=== PATIENT | female | born 1985 | race Two or more races ===

== ENCOUNTER 2021-07-30 09:02 | Outpatient (CLI) | payer OTHER | END 2021-07-30 10:00 | disposition home or self-care (01) | LOC: PRENATAL 09:02 | PROVIDERS: ATTEND Obstetrics & Gynecology Maternal & Fetal Medicine | DX: O35.0XX1 Maternal care for (suspected) central nervous system malformation in fetus, fetus 1 (principal); O35.3XX1 Maternal care for (suspected) damage to fetus from viral disease in mother, fetus 1; O98.512 Other viral diseases complicating pregnancy, second trimester; Z36.89 Encounter for other specified antenatal screening; Z3A.20 20 weeks gestation of pregnancy ==

== ENCOUNTER 2021-09-16 21:09 | Emergency (ER) | payer OTHER ==
[~2021-09-16] VITALS: Ht 160 cm; Wt 73.5 kg
[2021-09-16] MEDS ORDERED: PRENATABS RX T1 EACH (21:24)
[2021-09-17] MEDS ORDERED: PEPCID40 MG PO (02:56)
[2021-09-17] MEDS ORDERED: ZOFRAN4 MG PO (02:56)
== END 2021-09-17 03:15 ==
LOC: ER 21:09
DX: O21.0 Mild hyperemesis gravidarum (principal); O99.612 Diseases of the digestive system complicating pregnancy, second trimester; K52.89 Other specified noninfective gastroenteritis and colitis; Z3A.27 27 weeks gestation of pregnancy; Z03.818 Encounter for observation for suspected exposure to other biological agents ruled out

== ENCOUNTER 2021-12-09 14:30 | Inpatient (IN) | payer OTHER ==
[~2021-12-09] VITALS: Ht 160 cm; Wt 79.4 kg
[~2021-12-09 14:30] MED LIST: PEPCID40 MG PO; PRENATABS RX T1 EACH; ZOFRAN4 MG PO
== END 2021-12-20 12:31 | disposition home or self-care (01) | DRG 788 ==
LOC: OB/GYN 12-16 14:30 → LDR 12-17 06:01 → OB/GYN 12-17 06:01
PROVIDERS: ADMIT Obstetrics & Gynecology; ATTEND Obstetrics & Gynecology
PROC: 4A1HXCZ Monitoring of Products of Conception, Cardiac Rate, External Approach (ICD-10-PCS; 2021-12-17)
PROC: 10D00Z1 Extraction of Products of Conception, Low, Open Approach (ICD-10-PCS; principal; 2021-12-17 20:00)
DX: O62.0 Primary inadequate contractions (principal); Z20.822 Contact with and (suspected) exposure to COVID-19; Z37.0 Single live birth; Z3A.40 40 weeks gestation of pregnancy

== ENCOUNTER 2023-10-08 10:01 | Outpatient (CLI) | payer OTHER | END 2023-10-08 10:02 | disposition home or self-care (01) | LOC: PRENATAL 10:01 | PROVIDERS: ATTEND Obstetrics & Gynecology Maternal & Fetal Medicine | DX: O26.849 Uterine size-date discrepancy, unspecified trimester (principal); O34.219 Maternal care for unspecified type scar from previous cesarean delivery; O44.00 Complete placenta previa NOS or without hemorrhage, unspecified trimester; Z3A.28 28 weeks gestation of pregnancy ==

== ENCOUNTER 2023-11-15 12:36 | Outpatient (CLI) | payer OTHER | END 2023-11-15 14:12 | disposition home or self-care (01) | LOC: PRENATAL 12:36 | PROVIDERS: ATTEND Obstetrics & Gynecology Maternal & Fetal Medicine | DX: O26.849 Uterine size-date discrepancy, unspecified trimester (principal); O34.219 Maternal care for unspecified type scar from previous cesarean delivery; O36.8199 Decreased fetal movements, unspecified trimester, other fetus; Z3A.34 34 weeks gestation of pregnancy ==

== ENCOUNTER 2023-12-17 10:45 | Inpatient (IN) | payer OTHER ==
[~2023-12-17] VITALS: Ht 160 cm; Wt 80.7 kg
[2023-12-17 11:41] LABS: HEMATOCRIT 36.6 % (36.0-45.00); HEMOGLOBIN 12.6 g/dL (12.0-15.00); MEAN CELL VOLUME 93.3 fL (80.00-100.00); MEAN CORPUSCULAR HEMOGLOBIN 32.2 pg (27.00-32.0); MEAN CORPUSCULAR HGB CONC 34.6 g/dl (32.0-36.0); PLATELET COUNT 248 K/uL (150-450); RED BLOOD COUNT 3.92 M/uL (4.00-6.00); RED CELL DISTRIBUTION WIDTH 14.7 % (11.5-14.5)
[2023-12-17 11:49] LABS: PH,URINE 6.5 (5.0-8.0); URINE APPEARANCE Clear; URINE BILIRRUBIN Negative (NEGATIVE); URINE BLOOD Negative; URINE COLOR Yellow; URINE LEUKOCYTE Negative; URINE NITRATE Negative; URINE PROTEIN Negative (NEGATIVE); URINE UROBILINOGEN 0.2 E.U./dl
[2023-12-17 11:53] LABS: URINE BACTERIA 577.9 uL (0.0-1933); URINE EPITHELIAL CELLS 6.6 uL (0.0-38.8); URINE RBC 3.1 uL (0.0-20.8); URINE WBC 8.3 uL (0.0-23.2)
[2023-12-17 12:17] LABS: INR < 0.93; PARTIAL THROMBOPLASTIN TIME 27.1 SECONDS (22.0-34.0); PROTHROMBIN TIME 9.5 SECONDS (9.0-11.5)
[2023-12-17 13:03] LABS: URINE GLUCOSE 100 MG/DL (NEGATIVE)
[2023-12-22] MEDS ORDERED: CEFOXITIN SODIUM 2,000 MG VIAL IV ONE ×2 (12:11→13:00)
[2023-12-22] MEDS ORDERED: OXYTOCIN 10 UNITS/ML VIAL ONE ×2 (12:11→20:08)
[2023-12-22] MEDS ORDERED: ERYTHROMYCIN BASE 1 GM TUBE OP ONE ×2 (12:12→13:00)
[2023-12-22] MEDS ORDERED: OXYTOCIN 10 UNITS/ML VIAL IV ONE (13:00)
[2023-12-22] MEDS ORDERED: KETOROLAC TROMETHAMINE 60 MG VIAL IM STA (16:36)
[2023-12-22] MEDS ORDERED: PROMETHAZINE HCL 25 MG/ML AMPUL IM PRN (16:45)
[2023-12-22] MEDS ORDERED: ERYTHROMYCIN BASE 1 GM TUBE OP SCH (16:45)
[2023-12-22] MEDS ORDERED: MEPERIDINE HCL/PF 50 MG/ML VIAL IM PRN (16:45)
[2023-12-22] MEDS ORDERED: RINGERS SOLUTION,LACTATED 1,000 ML IV SCH (16:45)
[2023-12-22] MEDS ORDERED: CHLORHEXIDINE GLUCONATE 120 ML BOTTLE TOP SCH (16:45)
[2023-12-22] MEDS ORDERED: OXYTOCIN 1,000 ML IV SCH (16:45)
[2023-12-22] MEDS ORDERED: KETOROLAC TROMETHAMINE 60 MG VIAL IM ONE (16:48)
[2023-12-22 21:17] LABS: HEMATOCRIT 29.8 % (36.0-45.00); HEMOGLOBIN 10.3 g/dL (12.0-15.00); MEAN CELL VOLUME 94.5 fL (80.00-100.00); MEAN CORPUSCULAR HEMOGLOBIN 32.6 pg (27.00-32.0); MEAN CORPUSCULAR HGB CONC 34.5 g/dl (32.0-36.0); PLATELET COUNT 191 K/uL (150-450); RED BLOOD COUNT 3.16 M/uL (4.00-6.00); RED CELL DISTRIBUTION WIDTH 15.1 % (11.5-14.5)
[2023-12-23] MEDS ORDERED: OxyCODONE HCL/APAP UD (PERCOCET) PO PRN (09:00)
[2023-12-23] MEDS ORDERED: IBUprofen 600 MG TABLET PO PRN (22:00)
[2023-12-24] MEDS ORDERED: BISACODYL 10 MG/SUPP.RECT SUPP.RECT RECTAL ONE (00:15)
== END 2023-12-24 17:51 | disposition home or self-care (01) | DRG 788 ==
LOC: OB/GYN 12-22 09:15 → O/R 12-22 09:35 → OB/GYN 12-22 09:35
PROVIDERS: ADMIT Obstetrics & Gynecology; ATTEND Obstetrics & Gynecology
PROC: 4A1HXCZ Monitoring of Products of Conception, Cardiac Rate, External Approach (ICD-10-PCS; 2023-12-22)
PROC: 10D00Z1 Extraction of Products of Conception, Low, Open Approach (ICD-10-PCS; principal; 2023-12-22 09:15)
DX: O34.211 Maternal care for low transverse scar from previous cesarean delivery (principal); Z3A.39 39 weeks gestation of pregnancy; Z37.0 Single live birth; Z20.822 Contact with and (suspected) exposure to COVID-19